=== PATIENT | female | born 1970 | race Caucasian/White ===

== ENCOUNTER 2018-01-15 09:33 | Outpatient (CLI) | payer BC | END 2018-01-15 09:34 | disposition home or self-care (01) | LOC: CTENTCT 09:33 | PROVIDERS: ATTEND Otolaryngology Plastic Surgery within the Head & Neck | DX: J32.9 Chronic sinusitis, unspecified (principal) | CPT/HCPCS: 70486 ==

== ENCOUNTER 2018-03-20 15:39 | Outpatient (CLI) | payer BC | END 2018-03-20 15:40 | disposition home or self-care (01) | LOC: BICMAMMO 15:39 | PROVIDERS: ATTEND Obstetrics & Gynecology | DX: Z12.31 Encounter for screening mammogram for malignant neoplasm of breast (principal); R92.1 Mammographic calcification found on diagnostic imaging of breast; Z80.3 Family history of malignant neoplasm of breast | CPT/HCPCS: 77063; 77067 ==

== ENCOUNTER 2019-07-12 09:08 | Outpatient (CLI) | payer BC ==
--- NOTE | 2019-07-12 10:25 | MMO ---
Bilateral MAMMO Bilat Screen [facility]. CLINICAL HISTORY: Patient is 49 years old and is seen for screening. The patient has the following family history of breast cancer: maternal aunt. The patient has no personal history of cancer. VIEWS: The views performed were: bilateral craniocaudal with tomosynthesis and bilateral mediolateral oblique with tomosynthesis. FILMS COMPARED: The present examination has been compared to prior imaging studies performed at [facility] on 02/07/2015, 02/09/2016, 02/10/2017 and 03/20/2018. MAMMOGRAM FINDINGS: The breasts are extremely dense, which may lower the sensitivity of mammography. There are benign appearing calcifications seen in both breasts. There are no suspicious masses, suspicious calcifications, or new areas of architectural distortion. IMPRESSION: THERE IS NO MAMMOGRAPHIC EVIDENCE OF MALIGNANCY. A ROUTINE FOLLOW-UP MAMMOGRAM IN 1 YEAR IS RECOMMENDED. THE RESULTS OF THIS EXAM WERE SENT TO THE PATIENT. ACR BI-RADS Category 2 - Benign finding MAMMOGRAPHY NOTE: 1. A negative mammogram report should not delay a biopsy if a dominant of clinically suspicious mass is present. 2. Approximately 10% to 15% of breast cancers are not detected by mammography. 3. Adenosis and dense breasts may obscure an underlying neoplasm. Reported by: SHREYAS CONN MD Electonically Signed: [id number]
== END 2019-07-12 09:09 | disposition home or self-care (01) ==
LOC: BICMAMMO 09:08
PROVIDERS: ATTEND Obstetrics & Gynecology
DX: Z12.31 Encounter for screening mammogram for malignant neoplasm of breast (principal); Z80.3 Family history of malignant neoplasm of breast
CPT/HCPCS: 77063; 77067

== ENCOUNTER 2020-08-11 07:44 | Outpatient (CLI) | payer BC, OTHER ==
[2020-08-11 18:23] LABS: BHCG - Serum Negative (NEGATIVE); Pregs Control Background? CLEAR/WHITE (CLR/WHITE); Pregs Control Bar Appear? YES (CONTROL BAR)
[2020-08-12 15:22] LABS: SARS-CoV-2 MS2 Positive; SARS-CoV-2 N Gene Negative; SARS-CoV-2 S Gene Negative; SARS-CoV-2 by NAA Not Detected (NotDetected); SARS-CoV-2 orf1ab Negative
--- NOTE | 2020-08-14 17:30 | EKG ---
Test Reason : Blood Pressure : / mmHG Vent. Rate : 087 BPM Atrial Rate : 087 BPM P-R Int : 126 ms QRS Dur : 080 ms QT Int : 354 ms P-R-T Axes : 031 062 023 degrees QTc Int : 425 ms Normal sinus rhythm Nonspecific ST-T changes No previous ECGs available Confirmed by DR. Nathalia MELENDEZ ([id number]) on 08/14/2020 5:29:18 PM Referred By: BASILIO Confirmed By:DR. Nathalia MELENDEZ
== END 2020-08-11 07:45 | disposition home or self-care (01) ==
LOC: LABBT 07:44
PROVIDERS: ATTEND Otolaryngology Plastic Surgery within the Head & Neck
DX: Z01.818 Encounter for other preprocedural examination (principal); J32.0 Chronic maxillary sinusitis; J32.1 Chronic frontal sinusitis; J32.2 Chronic ethmoidal sinusitis; J32.3 Chronic sphenoidal sinusitis; J33.9 Nasal polyp, unspecified; B49 Unspecified mycosis; J34.2 Deviated nasal septum; J34.89 Other specified disorders of nose and nasal sinuses; J34.3 Hypertrophy of nasal turbinates; Z20.828 Contact with and (suspected) exposure to other viral communicable diseases
CPT/HCPCS: 84703; 85014; 87635; 93005; 93010; U0003

== ENCOUNTER 2020-08-16 07:25 | Day surgery (SDC) | payer BC ==
[2020-08-15 12:46] VITALS: BMI 29.5
[2020-08-16] MEDS ORDERED: AFRIN NASAL MIST 15 ML BOT ONE ×2 (08:02→09:28)
[2020-08-16] MEDS ORDERED: Fentanyl 100 MCG/2 ML VIAL ONE ×2 (09:26→11:22)
[2020-08-16] MEDS ORDERED: Midazolam HCl 2 mg/2 ml Vial ONE (09:26)
[2020-08-16] MEDS ORDERED: Bacitracin Zinc Ointment 30 gm TUBE ONE (09:28)
[2020-08-16] MEDS ORDERED: Lidocaine 1% w/Epinephrine 1:100K 20 ML VIAL ONE (09:28)
[2020-08-16] MEDS ORDERED: EPINEPHrine 1 MG/ML AMP ONE (09:28)
[2020-08-16] MEDS ORDERED: methylPREDNISolone Acetate 40 mg/ml Vial ONE (10:04)
[2020-08-16] MEDS ORDERED: Dexamethasone 20 MG/5 ML VIAL ONE (11:04)
[2020-08-16] MEDS ORDERED: Rocuronium Bromide 10 MG/ML (10ML VIAL) ONE (11:04)
[2020-08-16] MEDS ORDERED: Ondansetron PF 4 MG/2 ML Vial ONE (11:04)
[2020-08-16] MEDS ORDERED: Glycopyrrolate 0.2 MG/ML 5 ML SYRINGE ONE (11:04)
[2020-08-16] MEDS ORDERED: Lidocaine 1% PF 5 ML VIAL ONE (11:04)
[2020-08-16] MEDS ORDERED: PROPOFOL 200 MG/20 ML VIAL ONE (11:04)
[2020-08-16] MEDS ORDERED: HYDROcodone/Acetaminophen 5/325 mg Tablet ONE (12:37)
--- NOTE | 2020-08-17 09:25 | OP ---
DATE OF PROCEDURE: 08/16/2020 PREOPERATIVE DIAGNOSES: 1. Allergic fungal sinusitis. 2. Chronic rhinosinusitis. 3. Nasal septal deviation. 4. Bilateral inferior turbinate hypertrophy. 5. Nasal obstruction. POSTOPERATIVE DIAGNOSES: 1. Allergic fungal sinusitis. 2. Chronic rhinosinusitis. 3. Nasal septal deviation. 4. Bilateral inferior turbinate hypertrophy. 5. Nasal obstruction. PROCEDURES: 1. Total ethmoidectomies with sphenoidotomies including removal of tissue, bilateral. 2. Bilateral endoscopic sinus surgery, maxillary antrostomies. 3. Bilateral endoscopic sinus surgery, frontal sinus exploration. 4. Nasoseptoplasty. 5. Bilateral inferior turbinate submucosal resection. 6. LandmarX image-guided navigational surgical . ESTIMATED BLOOD LOSS: 50 mL. COMPLICATIONS: None. ANESTHESIA: GETA. PROCEDURE IN DETAIL: The patient was taken to the operating room and GETA was obtained by the anesthesia staff. Afrin pledgets were then placed into the nasal cavity bilaterally. The patient was placed into the beach chair positon and was prepped and draped for standard nasal surgical procedures. Following this, the Afrin pledgets were removed and 1% lidocaine with 1:100,000 epinephrine was injected via a 27 gauge needle into the nasal septum, the inferior turbinate and the middle turbinate bilaterally. Following this, a [place] incision was made on the left nasal septum and mucoperichondrial flaps were elevated. A strong 2 cm caudal and dorsal cartilage strut was left intact as the deviated portions of the nasal cartilage and bone was removed. A 4-0 gut stitch was used to reapproximate the nasal mucoperichondrial flaps as well as close the [place] incision. Following this, the submucosal microdebrider was used to puncture and submucosally resect the anterior-inferior portions of the hypertrophic inferior turbinates. The inferior turbinates were laterally outfractured with a Poplar elevator. Please note that the cartilage of the nasal septum was extremely friable. There was a generous caudal and dorsal strut left but the cartilage did appear to be , the Adisn image-guided system was set up and calibrated to be within 1 mm of accuracy. Following this, all remaining instruments used throughout the procedures were under image guided surveillance. Following this, the middle turbinates were gently medialized with a Poplar elevator and the uncinate process was identified. The uncinate process was anteriorly fractured using ball-ended probe bilaterally and was removed using the 0-degree microdebrider and up-biting Blakesley forceps bilaterally. Following this, the natural maxillary sinus ostia was identified and was then widened using the ball-ended probe and straight Blakesley forceps. The 40-degree microdebrider blade was then used to widen the maxillary sinus ostia bilaterally. Following this, the ethmoidal bulla was identified bilaterally and was punctured on its medial and inferior aspect and was removed using the 0-degree microdebrider and up-biting Blakesley forceps bilaterally. Following this, the grand lamella was identified, it was punctured into the posterior ethmoidal cells using the 0-degree microdebrider bilaterally under image guidance surveillance. Working from posterior to anterior, the ethmoidal cells were opened in a mucosal sparing technique. Following this, the anterior face of the sphenoid sinus was identified using anatomical landmarks as well as the Adisn image-guided system and a sphenoidotomy was created bilaterally. In the bilateral sphenoid sinuses, there was fungal debris that was present, it was removed using upbiting Blakesley forceps, suction and irrigation devices. Following this, the 45-degree endoscope and a 40-degree microdebrider blade was used to visualize the frontal sinus ostia and the frontal sinus ostia was widened using a 40-degree microdebrider blade bilaterally. Following this, the nasal cavity was irrigated, PROPEL nasal steroid stents were placed within the middle meatus bilaterally and the NasoPore packing was placed within the middle meatus. Celestin splints were placed and secured, the patient tolerated the procedure well. Job ID: [id number]
== END 2020-08-16 12:58 | disposition home or self-care (01) ==
LOC: SDC 07:25
PROVIDERS: ATTEND Otolaryngology Plastic Surgery within the Head & Neck
PROC: 09BW8ZZ Excision of Right Sphenoid Sinus, Via Natural or Artificial Opening Endoscopic (ICD-10-PCS; principal; 2020-08-16)
PROC: 8E09XBZ Computer Assisted Procedure of Head and Neck Region (ICD-10-PCS; principal; 2020-08-16)
PROC: 099Q8ZZ Drainage of Right Maxillary Sinus, Via Natural or Artificial Opening Endoscopic (ICD-10-PCS; principal; 2020-08-16)
PROC: 09SM0ZZ Reposition Nasal Septum, Open Approach (ICD-10-PCS; principal; 2020-08-16)
PROC: 099T8ZZ Drainage of Left Frontal Sinus, Via Natural or Artificial Opening Endoscopic (ICD-10-PCS; principal; 2020-08-16)
PROC: 099R8ZZ Drainage of Left Maxillary Sinus, Via Natural or Artificial Opening Endoscopic (ICD-10-PCS; principal; 2020-08-16)
PROC: 09TU8ZZ Resection of Right Ethmoid Sinus, Via Natural or Artificial Opening Endoscopic (ICD-10-PCS; principal; 2020-08-16)
PROC: 09TV8ZZ Resection of Left Ethmoid Sinus, Via Natural or Artificial Opening Endoscopic (ICD-10-PCS; principal; 2020-08-16)
PROC: 099S8ZZ Drainage of Right Frontal Sinus, Via Natural or Artificial Opening Endoscopic (ICD-10-PCS; principal; 2020-08-16)
PROC: 09TL0ZZ Resection of Nasal Turbinate, Open Approach (ICD-10-PCS; principal; 2020-08-16)
PROC: 09BX8ZZ Excision of Left Sphenoid Sinus, Via Natural or Artificial Opening Endoscopic (ICD-10-PCS; principal; 2020-08-16)
DX: J32.4 Chronic pansinusitis (principal); J30.89 Other allergic rhinitis; J34.2 Deviated nasal septum; J34.3 Hypertrophy of nasal turbinates; J34.89 Other specified disorders of nose and nasal sinuses; J33.9 Nasal polyp, unspecified; E78.5 Hyperlipidemia, unspecified; Z79.899 Other long term (current) drug therapy
CPT/HCPCS: 87070; 87077; 87102; 87186; 87205; 87206; C2625; J0171; J1100; J2250; J2405; J2704; J2920; J3010